=== PATIENT | female | born 1995 | race American Indian/Alaskan Native ===

== ENCOUNTER 2020-02-19 12:46 | Emergency (ER) | payer SELFPAY ==
--- NOTE | 2020-02-19 13:42 | Emergency Department Report ---
Blank Doc - Documentation Documentation: This is a 24-year-old female that presents with pelvic pain x several days. P atient stated is but denies knowing how far. LMP 12/18/2019. Denies any vaginal bleeding. This initial assessment/diagnostic orders/clinical plan/treatment(s) is/are subject to change based on patient's health status, clinical progression and re- assessment by fellow clinical providers in the ED. Further treatment and workup at subsequent clinical providers discretion. Patient/guardians urged not to elope from the ED as their condition may be serious if not clinically assessed and managed. Initial orders include: 1- Patient sent to [facility] for further evaluation and treatment 2- labs 3- UA 4- US OB
[2020-02-19 13:45] VITALS: BP 111/75
[2020-02-19 15:41] LABS: Basophils % (Auto) 0.3 % (0.0-1.8); Eosinophils # (Auto) 0.1 K/mm3 (0.0-0.4); Eosinophils % (Auto) 1.2 % (0.0-4.3); Hematocrit 40.4 % (30.3-42.9); Hemoglobin 13.7 gm/dl (10.1-14.3); Lymphocytes # (Auto) 1.8 K/mm3 (1.2-5.4); Lymphocytes % (Auto) 19.4 % (13.4-35.0); Mean Corpuscular HGB Conc 34 % (30-34); Mean Corpuscular Volume 83 fl (79-97); Monocytes # (Auto) 0.5 K/mm3 (0.0-0.8); Monocytes % (Auto) 5.1 % (0.0-7.3); Platelet Count 219 K/mm3 (140-440); Red Blood Count 4.85 M/mm3 (3.65-5.03); Red Cell Distribution Width 14.6 % (13.2-15.2)
[2020-02-19 15:57] LABS: Alanine Aminotransferase 13 units/L (7-56); Albumin 4.4 g/dL (3.9-5); Blood Urea Nitrogen 6 mg/dL (7-17); Calcium 9.6 mg/dL (8.4-10.2); Hemolysis Index 14
[2020-02-19 16:06] LABS: BUN/Creatinine Ratio 12
--- NOTE | 2020-02-19 17:20 | Ultrasound Report ---
FIRSTTRIMESTER OBSTETRIC ULTRASOUND HISTORY: Provided clinical history of pelvic pain. COMPARISON: None. TECHNIQUE: Routine transabdominal and transvaginal OB ultrasound performed. FINDINGS: Uterus: Mildly enlarged measuring 10.9 x 7.3 x 7.0 cm. Gestational Sac: Well-defined oval shape and intrauterine in location. Yolk Sac: Normal in appearance. Fetus/Embryo: [place]-rump length of 1.0 cm, corresponding to an estimated gestational age of 7 weeks a nd 0 days. Embryonic/ anatomy is too small for evaluation. Embryonic/ cardiac activity: 154bpm Placenta: Too small for evaluation. Amniotic fluid volume: Subjectively appropriate for gestational age. Ovaries: The right ovary is normal in size and appearance with normal blood flow, measuring 2.6 x 0. 9 x 2.4 cm. The left ovary is normal in size with a 1.9 cm simple cyst and with normal blood flow, m easuring 4.1 x 2.7 x 3.9 cm. Hypoechoic space-occupying mass in the left ovary with peripheral vascu larity is most likely the corpus luteum. Additional findings: 2.2 x 4.4 x 1.8 cm heterogeneous echogenic subchorionic collection suggestive of hematoma. IMPRESSION: 1. Early live intrauterine with estimated gestational age of 7 weeks and 0 days. 2. Heterogeneous subchorionic fluid suggestive of a medium-sized subchorionic hematoma. Recommend att ention on follow-up. Signer Name: Freddy Voss MD Signed: 02/19/2020 5:16 PM Workstation Name: [id number]
[2020-02-19 19:06] LABS: Bilirubin,Urine NEG (Negative); Blood,Urine NEG (Negative); Color,Urine Yellow (Yellow); Mucus,Urine 3+ /HPF; Protein,Urine <15 mg/dL mg/dL (Negative); Urobilinogen,Urine < 2.0 mg/dL (<2.0)
--- NOTE | 2020-02-19 19:24 | Emergency Department Report ---
ED Female HPI - General Chief complaint: Abdominal Pain Stated complaint: PREV SCAR PAIN Time Seen by Provider: 02/19/20 13:41 Source: patient Mode of arrival: Ambulatory Limitations: No Limitations - History of Present Illness Initial comments: 24-year-old -[place] female presents to the emergency room stating that she was having lower pelvic pain that was sharp in nature. Patient states that she had a positive home test. Her last menstrual period was 11-20. She has had it by . She is 4 para 1 with 2 miscarriage. Patient states that this time she is currently in no pain she has no vaginal discharge or vaginal bleeding. She states that she is from out of town and will be returning back to [place]. She denies any urinary issues. MD Complaint: pelvic pain -: This morning Radiation: suprapubic Severity scale (0 -10): 0 Quality: cramping Consistency: now resolved Are you Now?: Yes Last Menstrual Period: 12/18/19 EDC: 09/23/20 Associated Symptoms: denies other symptoms - Related Data Sexually active: Yes : 4 Para: 1 A: 2 Allergies Allergy/AdvReac Type Severity Reaction Status Date / Time No Known Allergies Allergy Unverified 02/19/20 13:45 ED Review of Systems ROS: Stated complaint: PREV SCAR PAIN Other details as noted in HPI Comment: All other systems reviewed and negative ED Physical Exam - General Limitations: No Limitations General appearance: alert, in no apparent distress - Head Head exam: Present: atraumatic, normocephalic - Eye Eye exam: Present: normal appearance - ENT ENT exam: Present: mucous membranes moist - Neck Neck exam: Present: normal inspection - Respiratory Respiratory exam: Present: normal lung sounds bilaterally. Absent: respiratory distress - Cardiovascular Cardiovascular Exam: Present: regular rate, normal rhythm. Absent: systolic murmur, diastolic murmur, rubs, gallop - GI/Abdominal GI/Abdominal exam: Present: soft, normal bowel sounds - Extremities Exam Extremities exam: Present: normal inspection - Back Exam Back exam: Present: normal inspection - Neurological Exam Neurological exam: Present: alert, oriented X3 - Psychiatric Psychiatric exam: Present: normal affect, normal mood - Skin Skin exam: Present: warm, dry, intact, normal color. Absent: rash ED Course Vital Signs 02/19/20 13:42 Temperature 98.2 F Pulse Rate 89 Respiratory 18 Rate Blood Pressure 111/75 O2 Sat by Pulse 98 Oximetry ED Medical Decision Making - Lab Data Result diagrams: 02/19/20 15:28 02/19/20 15:28 - Radiology Data Radiology results: report reviewed Referring Physician:MANDY CHIUPatient Name:DAVIDA SHANEPatient ID:[id number] of :[id number]:FemaleAccession:[id number] Date:[id number] Status:Finalized Findings [facility] [address] [place] [address] Ultrasound Report Signed Patient: DAVIDA SHANE MR# : [id number] : 1995 Acct:[id number] Age/Sex: 24 / F ADM Date: 02/19/20 Loc: ED Attending Dr: Ordering Physician: MANDY CHIU NP Date of Service: 02/19/20 Procedure(s): US OB transvaginal Accession Number(s): [id number] cc: MANDY CHIU NP FIRSTTRIME[facility] OBSTETRIC ULTRASOUND HISTORY: Provided clinical history of pelvic pain. COMPARISON: None. TECHNIQUE: Routine transabdominal and transvaginal OB ultrasound performed. FINDINGS: Uterus: Mildly enlarged measuring 10.9 x 7.3 x 7.0 cm. Gestational Sac: Well-defined oval shape and intrauterine in location. Yolk Sac: Normal in appearance. Fetus/Embryo: [place]-rump length of 1.0 cm, corresponding to an estimated gestati onal age of 7 weeks and 0 days. Embryonic/ anatomy is too small for evaluation. Embryonic/ cardiac activity: 154bpm Placenta: Too small for evaluation. Amniotic fluid volume: Subjectively appropriate for gestational age. Ovaries: The right ovary is normal in size and appearance with normal blood flow, measuring 2.6 x 0.9 x 2.4 cm. The left ovary is normal in size with a 1.9 cm simple cyst and with normal blood f low, measuring 4.1 x 2.7 x 3.9 cm. Hypoechoic space-occupying mass in the left ovary with peripheral vascularity is most likely the corpus luteum. Additional findings: 2.2 x 4.4 x 1.8 cm heterogeneous echogenic subchorionic collection suggestive of hematoma. IMPRESSION: 1. Early live intrauterine with estimated gestational age of 7 weeks and 0 days. 2. Heterogeneous subchorionic fluid suggestive of a medium-sized subchorionic hematoma. Recommend attention on follow-up. Signer Name: Venkat Voss MD Signed: 02/19/2020 5:16 PM Workstation Name: [id number] Transcribed By: Dictated By: VENKAT VOSS III Electronically Authenticated By: VENKAT VOSS III Signed Date/Time: 02/19/201715 DD/ 08 TD/TT: - Medical Decision Making 24-year-old -[place] female presents to the emergency room stating that she was having lower pelvic pain that was sharp in nature. Patient states that she had a positive home test. Her last menstrual period was 11-20. She has had it by . She is 4 para 1 with 2 miscarriage. Patient states that this time she is currently in no pain she has no vaginal discharge or vaginal bleeding. She states that she is from out of town and will be returning back to [place]. She denies any urinary issues. Urinalysis is negative ultrasound shows 7 weeks . Critical care attestation.: If time is entered above; I have spent that time in minutes in the direct care of this critically ill patient, excluding procedure time. ED Disposition Clinical Impression: Disposition: DC-01 TO HOME OR SELFCARE Is pt being admited?: No Does the pt Need Aspirin: No Condition: Stable Instructions: Abdominal Pain (ED), First Trimester of , [id number] Additional Instructions: Ultrasound shows you have a 7-week fetus intrauterine. I recommend starting a vitamins you can take Tylenol for pain management. Follow-up with a [facility] provider. Referrals: [facility] [Primary Care Provider] - 3-[address] [facility] [Provider Group] - 3-5 Days [facility] [Provider Group] - 3-5 Days
== END 2020-02-19 20:36 | disposition home or self-care (01) ==
LOC: ED 12:46
DX: O26.891 Other specified pregnancy related conditions, first trimester (principal); R10.2 Pelvic and perineal pain; Z3A.01 Less than 8 weeks gestation of pregnancy
CPT/HCPCS: 36415; 76801; 76817; 80053; 81001; 84702; 85025